=== PATIENT | male | born 1935 | race Caucasian/White ===

== ENCOUNTER → 2021-06-08 | Day surgery (SDC) | payer MEDICARE, OTHER ==
[~2021-06-08] MED LIST: ACET500T68 PO; APIX5TAB3 PO; BUPIVACAINE MPF 0.25% 10 ML VIAL. ONE; DILT180T7 PO; IOHEXOL 300 MG/ML 50 ML VIAL. ONE; LIDOCAINE 1% PF 30 ML VIAL. ONE; methylPREDNISolone ACETATE 40 MG/ML VIAL. ONE
[2021-06-08 12:39] VITALS: BP 129/67
== END | disposition home or self-care (01) ==
LOC: SURG 11:08
PROVIDERS: ATTEND Anesthesiology
DX: M16.12 Unilateral primary osteoarthritis, left hip (principal); I48.91 Unspecified atrial fibrillation; G47.30 Sleep apnea, unspecified; M47.816 Spondylosis without myelopathy or radiculopathy, lumbar region; Z85.46 Personal history of malignant neoplasm of prostate; Z79.899 Other long term (current) drug therapy; Z98.890 Other specified postprocedural states; Z79.01 Long term (current) use of anticoagulants; Z88.2 Allergy status to sulfonamides; Z88.8 Allergy status to other drugs, medicaments and biological substances
CPT/HCPCS: 20610; 77002; A4209; A4657; A4930; J1030; J3490; Q9967